=== PATIENT | male | born 1990 | race African-American/Black ===

== ENCOUNTER 2017-05-04 09:25 | Emergency (ER) | payer MEDICAID, OTHER ==
[2017-05-04 09:31] VITALS: PULSE 62; RESP 16
--- NOTE | 2017-05-04 09:37 | CPEKG ---
Heart Rate: 57 RR Interval: 1053 P-R Interval: 196 QRSD Interval: 100 QT Interval: 384 QTC Interval: 374 P Albin: 19 QRS Albin: 47 T Wave Albin: 35 EKG Severity - ABNORMAL ECG - EKG Impression: SINUS RHYTHM EKG Impression: PROBABLE LEFT VENTRICULAR HYPERTROPHY Electronically Signed By: Kannan Stuart 04-May-2017 16:13:52
[2017-05-04 10:31] LABS: ANION GAP 11 mEq/L (8-16); CALCIUM 9.4 mg/dL (8.5-10.4); CARBON DIOXIDE 24 mEq/l (22-31); CHLORIDE 103 mEq/L (97-110); CREATININE 1.1 mg/dL (0.7-1.3); GLOMERULAR FILTRATION RATE > 60; GLUCOSE 90 mg/dL (70-100); SODIUM 138 mEq/L (134-144)
[2017-05-04 10:42] LABS: TROPONIN I 0.027 ng/mL (0-0.034)
--- NOTE | 2017-05-04 11:19 | EDPHY ---
H & P Time Seen by Provider: 05/04/17 10:08 HPI/ROS: Chief complaint. Back pain and left arm tingling HPI. 26-year-old male presents with left arm tingling and left scapular pain. He was lifting weights 3 days ago. There was no injury. About 30 minutes after the workout he developed tingling to the left hand. No weakness to the arm. No tingling or altered sensation now. Slight shortness of breath. No anterior chest discomfort. His discomfort is in the left scapula in worse with range of motion. He also had ruptured testicle several years ago and never had it evaluated. He has no urinary symptoms. No fever cough. No unusual leg pain or swelling. No neck pain. ROS Constitutional. no fever/chills, no weakness Eyes. no problems with vision ENT. no sore throat, no nasal drainage Cardiovascular. no chest pain Respiratory. Shortness of breath Abdominal. no abdominal pain, no nausea/vomiting, no diarrhea . Left testicle pain MS. Pain left scapula Skin. no rash Lymph. no swollen glands Neuro. Tingling left hand Past Medical/Surgical History: Healthy and remote left testicle injury Social History: Single, nonsmoker, no alcohol Smoking Status: Never smoked Physical Exam: General Appearance: Alert well-developed male mild distress vital signs are stable Eyes: Pupils equal and round no pallor or injection. ENT, Mouth: Mucous membranes are moist. Respiratory: There are no retractions, lungs are clear to auscultation. Cardiovascular: Regular rate and rhythm. Gastrointestinal: Abdomen is soft and nontender, no masses, bowel sounds normal. Neurological: Awake and alert, sensory and motor exams grossly normal. Skin: Warm and dry, no rashes. Musculoskeletal: Neck is supple and nontender. There is tenderness inferior medial to the left scapula without deformity. Extremities symmetrical, full range of motion. Psychiatric: Patient is oriented X 3, there is no agitation. Constitutional: Initial Vital Signs Temperature (C) 36.6 C 05/04/17 09:27 Heart Rate 62 05/04/17 09:27 Respiratory Rate 16 05/04/17 09:27 Blood Pressure 128/70 H 05/04/17 09:27 O2 Sat (%) 98 05/04/17 09:27 O2 Delivery Mode Room Air Allergies/Adverse Reactions: No Known Allergies Allergy (Unverified 05/04/17 09:31) Home Medications: Medication Instructions Recorded CYCLOBENZAPRINE HCL [Flexeril] 5 mg PO TIDPRN PRN #10 tab 05/04/17 Medical Decision Making - Diagnostics EKG Interpretation: EKG interpreted by me shows normal sinus rhythm with normal interval and axis. QRS normal other than LVH by voltage. No significant ST elevation or depression. No arrhythmia. The rate is 57 Imaging Results: Imaging Impressions Chest X-Ray 05/04/17 10:20 Impression: Mild cardiomegaly, although heart size is likely exaggerated by portable technique. Chest x-ray interpreted by me shows no evidence of pneumonia or pneumothorax Procedures: IV normal saline, monitor ED Course/Re-evaluation: Re-evaluation 11:20 a.m.-- Differential Diagnosis: Likely this is muscle spasm. I considered pulmonary embolus as well as acute coronary syndrome. Patient has a remote injury to the left testicle and will be given name of Urology for follow-up. - Data Points Laboratory Results: Laboratory Results 05/04/17 09:30 05/04/17 05/04/17 10:35 09:30 D-Dimer < 0.27 ug/mLFEU ug/mLFEU (0.00-0.50) Sodium 138 mEq/L mEq/L (134-144) Potassium 4.0 mEq/L mEq/L (3.5-5.2) Chloride 103 mEq/L mEq/L (97-110) Carbon Dioxide 24 mEq/l mEq/l (22-31) Anion Gap 11 mEq/L mEq/L (8-16) BUN 16 mg/dL mg/dL (7-23) Creatinine 1.1 mg/dL mg/dL (0.7-1.3) Estimated GFR > 60 Glucose 90 mg/dL mg/dL (70-100) Calcium 9.4 mg/dL mg/dL (8.5-10.4) Troponin I 0.027 ng/mL ng/mL (0-0.034) Departure - Departure Disposition: Home, Routine, Self-Care Clinical Impression: Acute thoracic back pain Qualifiers: Back pain laterality: left Qualified Code(s): M54.6 - Pain in thoracic spine Condition: Good Instructions: Thoracic Back Strain (ED) Additional Instructions: Ice to sore area back next 24 hours. Then apply heat. Ibuprofen 600 mg every 6 hours for discomfort. Flexeril as muscle relaxer. Easy activity and then slow progression back in to weight training. Recheck in 2-3 days if not improved. I will also give you the name of urologist--Dr. Jennings-- to follow up with for further evaluation of your testicle Referrals: NONE *PRIMARY CARE P,. [Primary Care Provider] - As per Instructions Jose Jennings MD [Medical Doctor] - 5-7 days, call for appt. Omar Guerra MD [Medical Doctor] - 2-3 days, if not improved Prescriptions: CYCLOBENZAPRINE HCL [Flexeril] 5 mg PO TIDPRN PRN #10 tab PRN Reason: Spasms
[2017-05-04 11:45] VITALS: BP 164/86; TEMP 98.2; O2SAT 100
== END 2017-05-04 11:45 | disposition home or self-care (01) ==
DX: M54.6 Pain in thoracic spine (principal)